=== PATIENT | female | born 1945 | race Caucasian/White ===

== ENCOUNTER → 2016-11-08 | Outpatient (CLI) | payer MEDICARE, BC ==
[~2016-11-08] MED LIST: ASPIRIN E.C. 8181 MG PO; CALCIUM CARB W/1 TA1 PO; COUMADIN 3MG3 MG/TAB PO; FISH OIL SUPER1 SGL PO; FLAX SEED OIL1000 MG PO; FOLIC ACID0.4 MG PO; HCTZ 25MG TAB25 MG PO; IRON TABLETS325 MG PO; NORCO 325 MG-7.1 TAB PO; ROXICODONE 55 MG/TAB PO; TENORMIN 2525 MG/TAB PO; THERAGRAN1 TAB PO; VITAMIN B COMPL1 TA1 PO; VITAMIN C500 MG; VITAMIN D3400 IU PO; VITAMIN E 400 U4001 PO
== END ==
LOC: MC.RAD 09:57
DX: Z12.31 Encounter for screening mammogram for malignant neoplasm of breast (principal)

== ENCOUNTER → 2017-12-16 | Outpatient (CLI) | payer MEDICARE, BC | LOC: MC.RAD 13:58 | DX: Z12.31 Encounter for screening mammogram for malignant neoplasm of breast (principal) ==

== ENCOUNTER → 2018-04-10 | Outpatient (CLI) | payer MEDICARE, BC | LOC: COL.VAS 13:15 | DX: R22.42 Localized swelling, mass and lump, left lower limb (principal); M79.605 Pain in left leg ==

== ENCOUNTER 2019-06-30 06:30 | Emergency (ER) | payer MEDICARE, BC ==
[~2019-06-30] VITALS: Ht 157.5 cm; Wt 55.9 kg
[2019-06-30 06:44] VITALS: TEMP 97.9
[2019-06-30] MEDS ORDERED: BYSTOLIC5 MG PO (06:49)
[2019-06-30] MEDS ORDERED: VITAMIN C500 MG PO (06:51)
[2019-06-30] MEDS ORDERED: CALCIUM 600-D 61 TAB PO (06:52)
[2019-06-30] MEDS ORDERED: B COMPLEX #11 TAB PO (06:53)
[2019-06-30] MEDS ORDERED: AMOXICILLIN 8751 TAB PO (06:58)
[2019-06-30 06:59] LABS: BASO % 0.3 % (0.0-2.0); EOS % 0.1 % (0-4.0); GRAN # 10.6 (1.4-6.5); HEMATOCRIT 39.7 % (37.0-47.0); HEMOGLOBIN 13.7 g/dl (12.5-16.0); LYMPH # 0.7 (1.2-3.4); LYMPH % 5.7 % (20.0-51.0); MEAN CELL VOLUME 92 fl (80.0-100.0); MEAN CORPUSCULAR HEMOGLOBIN 32 pg (27.0-31.0); MEAN CORPUSCULAR HGB CONC 35 g/dl (33.0-37.0); MEAN PLATELET VOLUME 10.3 fl (7.4-10.4); MONO # 0.8 (0.1-0.6); MONO % 6.6 % (1.7-9.3); PLATELET COUNT 190 K/mm3 (130-400); RED BLOOD COUNT 4.32 M/mm3 (4.10-5.30); REDCELL DISTRIBUTION WIDTH-CV 13.3 % (11.5-14.5)
[2019-06-30 07:12] LABS: BILIRUBIN,TOTAL 0.7 mg/dL (0.0-1.0); CALCIUM 8.7 mg/dL (8.4-10.2); CREATININE, serum 0.57 (0.52-1.25); POTASSIUM 3.4 mmol/L (3.4-5.0); TOTAL PROTEIN 7.1 gm/dL (6.4-8.2)
[2019-06-30 07:36] VITALS: BP 134/83; PULSE 58
== END 2019-06-30 07:42 | disposition home or self-care (01) ==
LOC: COL.ER 06:30
PROVIDERS: Emergency Medicine
DX: S61.452A Open bite of left hand, initial encounter (principal); I10 Essential (primary) hypertension; W55.01XA Bitten by cat, initial encounter
CPT/HCPCS: J2543

== ENCOUNTER → 2020-06-10 | Outpatient (CLI) | payer MEDICARE, BC ==
[~2020-06-10] MED LIST changes: +AMOXICILLIN 8751 TAB PO; +B COMPLEX #11 TAB PO; +BYSTOLIC5 MG PO; +CALCIUM 600-D 61 TAB PO; +VITAMIN C500 MG PO
== END ==
LOC: MC.RAD 10:21
DX: Z12.31 Encounter for screening mammogram for malignant neoplasm of breast (principal)

== ENCOUNTER → 2021-02-10 | Outpatient (CLI) | payer MEDICARE, BC | LOC: COL.VAS 08:30 | DX: I82.401 Acute embolism and thrombosis of unspecified deep veins of right lower extremity (principal) ==

== ENCOUNTER → 2021-07-02 | Outpatient (CLI) | payer MEDICARE, BC | LOC: MC.RAD 08:22 | DX: Z12.31 Encounter for screening mammogram for malignant neoplasm of breast (principal) ==